=== PATIENT | female | born 1975 | race Caucasian/White ===

== ENCOUNTER → 2019-05-08 | Outpatient (CLI) | payer OTHER ==
[~2019-05-08] MED LIST: None per pt
[2019-05-08 15:54] LABS: HCG UR SG 1.011 (1.003-1.030); MICROSCOPIC NOT IND
[2019-05-08 15:56] LABS: BASOPHILS # (AUTO) 0.03 x10^3/uL (0-0.1); BASOPHILS % (AUTO) 0 % (0-1); EOSINOPHILS # (AUTO) 0.12 x10^3/uL (0-0.4); EOSINOPHILS % (AUTO) 2 % (1-7); LYMPHOCYTES # (AUTO) 2.04 x10^3/uL (1-3.4); LYMPHOCYTES % (AUTO) 27 % (22-44); MD NO; MEAN CORPUSCULAR HEMOGLOBIN 29.4 pg (27.0-34.8); MEAN CORPUSCULAR HGB CONC 33.8 g/dL (32.4-35.8); MEAN CORPUSCULAR VOLUME 87.2 fL (80-100); MEAN PLATELET VOLUME 7.8 fL (7.4-10.4); MONOCYTES # (AUTO) 0.65 x10^3/uL (0.2-0.8); MONOCYTES % (AUTO) 9 % (2-9); NEUTROPHILS # (AUTO) 4.69 x10^3/uL (1.8-6.8); NEUTROPHILS % (AUTO) 62 % (42-75); PLATELET COUNT 367 x10^3/uL (130-400); RED BLOOD COUNT 5.05 x10^6/uL (3.82-5.3); RED CELL DISTRIBUTION WIDTH 13.1 % (9.6-15.2)
[2019-05-08 15:58] LABS: CULTURE INDICATED? NO
== END | disposition home or self-care (01) ==
LOC: STAR 14:37
PROVIDERS: ATTEND Obstetrics & Gynecology
DX: Z01.818 Encounter for other preprocedural examination (principal); D25.9 Leiomyoma of uterus, unspecified
CPT/HCPCS: 36415; 81003; 81025; 85025

== ENCOUNTER 2019-05-18 08:16 | Day surgery (SDC) | payer OTHER ==
[~2019-05-18] VITALS: Ht 172.7 cm; Wt 72.7 kg
[2019-05-18 08:56] VITALS: BP 128/78
[2019-05-18 09:07] LABS: HCG UR SG 1.002 (1.003-1.030)
[2019-05-18] MEDS ORDERED: ACETAMINOPHEN 500 MG TABLET PO ONE (10:00)
[2019-05-18] MEDS ORDERED: SCOPOLAMINE PATCH, 1.5MG PATCH.TD72 TD ONE (10:00)
[2019-05-18] MEDS ORDERED: LACTATED RINGERS 1,000 ML IV SCH (10:00)
[2019-05-18] MEDS ORDERED: GABAPENTIN 300 MG CAPSULE PO ONE (10:00)
[2019-05-18] MEDS ORDERED: BUPIVACAINE/PF 0.25% ONE (10:09)
[2019-05-18] MEDS ORDERED: BUPIVACAINE/PF-EPI 0.25% 1:200K ONE (10:09)
[2019-05-18] MEDS ORDERED: FENTANYL PF 250 MCG/5ML ONE ×2 (10:17→11:34)
[2019-05-18] MEDS ORDERED: MIDAZOLAM 1 MG/ML, 2ML ONE (10:17)
[2019-05-18] MEDS ORDERED: DEXAMETHASONE 4 MG/ML, 1ML ONE (10:30)
[2019-05-18] MEDS ORDERED: LIDOCAINE-MPF 2% ,5ML ONE (10:31)
[2019-05-18] MEDS ORDERED: PROPOFOL 10 MG/ML, 20ML ONE (10:31)
[2019-05-18] MEDS ORDERED: CEFAZOLIN 1,000 MG ONE (10:53)
[2019-05-18] MEDS ORDERED: FLUORESCEIN SODIUM 500 MG/5 ML ONE (11:52)
[2019-05-18] MEDS ORDERED: PROMETHAZINE 12.5 MG SUPP PR PRN (12:00)
[2019-05-18] MEDS ORDERED: EPHEDRINE 50 MG/ML, 1ML IVPush PRN (12:00)
[2019-05-18] MEDS ORDERED: HYDROmorphone 2 MG/ML, 1ML IVPush PRN (12:00)
[2019-05-18] MEDS ORDERED: ONDANSETRON 2MG/ML, 2ML IV PRN (12:00)
[2019-05-18] MEDS ORDERED: hydrALAzine 20 MG/ML, 1ML IV PRN (12:00)
[2019-05-18] MEDS ORDERED: MEPERIDINE/PF 25MG/ML,1ML IVPush PRN (12:00)
[2019-05-18] MEDS ORDERED: DIAZEPAM 5 MG/ML, 2ML IVPush PRN (12:00)
[2019-05-18] MEDS ORDERED: HALOPERIDOL 5 MG/ML IV PRN (12:00)
[2019-05-18] MEDS ORDERED: FENTANYL PF 100 MCG/2ML IV PRN (12:00)
[2019-05-18] MEDS ORDERED: ALBUTEROL SULFATE 2.5 MG/3 ML NPPB PRN (12:00)
[2019-05-18] MEDS ORDERED: MIDAZOLAM 1 MG/ML, 2ML IV PRN (12:00)
[2019-05-18] MEDS ORDERED: LABETALOL 5MG/ML, 20ML IV PRN (12:00)
[2019-05-18] MEDS ORDERED: PROMETHAZINE 25 MG/ML, 1ML IV PRN (12:00)
[2019-05-18] MEDS ORDERED: OXYcodone 5 MG/5 ML ORAL.SOL UDC PO PRN (12:00)
[2019-05-18] MEDS ORDERED: ONDANSETRON ODT 8 MG PO PRN (12:00)
[2019-05-18] MEDS ORDERED: ONDANSETRON 2MG/ML, 2ML ONE ×2 (12:39)
[2019-05-18] MEDS ORDERED: SUGAMMADEX 200 MG/2 ML IVPush ONE (12:39)
[2019-05-18] MEDS ORDERED: INDIGO CARMINE 0.8%, 5ML ONE (12:57)
[2019-05-18] MEDS ORDERED: MEPERIDINE/PF 25MG/ML,1ML ONE (14:33)
[2019-05-18] MEDS ORDERED: OXYcodone 5 MG/5 ML ORAL.SOL UDC ONE (14:33)
[2019-05-18] MEDS ORDERED: EPHEDRINE 50 MG/ML, 1ML ONE (15:15)
[2019-05-18] MEDS ORDERED: EPHEDRINE 50 MG/ML, 1ML IM PRN (16:00)
== END 2019-05-18 19:15 | disposition home or self-care (01) ==
LOC: OUT 08:16 → MERGE 10:15 → OUT 19:15
PROVIDERS: ATTEND Obstetrics & Gynecology
DX: D25.9 Leiomyoma of uterus, unspecified (principal); N88.8 Other specified noninflammatory disorders of cervix uteri; N92.0 Excessive and frequent menstruation with regular cycle; R10.2 Pelvic and perineal pain; Z79.899 Other long term (current) drug therapy; Z88.8 Allergy status to other drugs, medicaments and biological substances; Z80.0 Family history of malignant neoplasm of digestive organs; Z82.61 Family history of arthritis; Z82.49 Family history of ischemic heart disease and other diseases of the circulatory system; Z83.3 Family history of diabetes mellitus
CPT/HCPCS: 36415; 58554; 81025; 85014; 85018; 86850; 86900; 88307; J0690; J1100; J2250; J2405; J2704; J3010; J7120; J3490